=== PATIENT | female | born 2000 | race Caucasian/White ===

== ENCOUNTER 2024-08-20 16:54 | Emergency (ER) | payer OTHER ==
[~2024-08-20] VITALS: Ht 170.2 cm; Wt 125.0 kg
--- OUTSIDE RECORDS SUMMARY | 2024-08-20 17:01 | XMS ---
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 Claudette VISIT COUNT (12 MO.) 1 LINDSEY Ying GreggKelsea Serrano ) TOTAL 2 NOTE: Visits indicate total known visits. ED/UCC VISIT TRACKING (12 MO.) 08/20/2024 16:55 LINDSEY Peng [place] TYPE: Emergency COMPLAINT: - PELVIC PAIN/POSS MED REACTION 08/20/2024 05:06 [facility] ([facility]) TYPE: Emergency DIAGNOSES: - Occipital neuralgia - Allergic Reaction - reaction to med INPATIENT VISIT TRACKING (12 MO.) No inpatient visits to display in this time frame [email or web address]
[2024-08-20] MEDS ORDERED: SODIUM CHLORIDE 0.9% 1,000 ML IV PRN (17:30)
[2024-08-20] MEDS ORDERED: FLUOXETINE HCL40 MG PO (17:35)
[2024-08-20] MEDS ORDERED: ONDANSETRON ODT8 MG PO (17:35)
[2024-08-20] MEDS ORDERED: LAMOTRIGINE25 MG PO (17:35)
[2024-08-20] MEDS ORDERED: DEXTROAMP-AMPHE20 MG PO (17:35)
[2024-08-20 17:36] LABS: BILIRUBIN, URINE NEGATIVE (negative); BLOOD/HGB, URINE MODERATE (Negative); KETONE, URINE NEGATIVE (Negative); LEUK ESTERASE, URINE MODERATE (negative); NITRITE, URINE POSITIVE (negative)
[2024-08-20] MEDS ORDERED: TRAZODONE HCL50 MG PO (17:36)
[2024-08-20] MEDS ORDERED: RIZATRIPTAN10 M1 PO (17:36)
[2024-08-20 17:39] LABS: BASOPHILS 0.2 % (0-2); HEMATOCRIT 41.4 % (35.0-50.0); HEMOGLOBIN 14.4 g/dL (12.0-18.0); LYMPHOCYTES 7.5 % (24-44); MCH 30.5 (27-36); MCHC 34.7 g/dl (30-36); MCV 87.9 fl (81-99); MONOCYTES 9.1 % (0-12); NEUTROPHILS 83.2 % (39-80); PLATELET COUNT 282 K/uL (140-440); RBC 4.71 M/ul (4.3-5.7); RDW 12.9 (10.5-15.0)
[2024-08-20 17:41] LABS: EPITHELIAL CELLS, URINE SQUAMOUS 1+ /lpf (0-1+)
[2024-08-20 17:42] LABS: BACTERIA, URINE 1+ /hpf (negative); CASTS, URINE NONE SEEN \\lpf; COLLECTION TYPE, URINE CLEAN CATCH; CRYSTALS, URINE NONE SEEN (0-1+); RED BLOOD CELLS, URINE 0-1 /hpf (0-5); REFLEX CULTURE, URINE Yes (No); WHITE BLOOD CELLS, URINE 41-50 /HPF (0-5)
[2024-08-20 17:55] LABS: ALBUMIN 3.2 g/dL (3.4-5.0); ALBUMIN/GLOBULIN RATIO 0.78 (1.1-2.4); BILIRUBIN, TOTAL 0.6 mg/dL (0.2-1.0); BUN/CREATININE RATIO 6.3 (6.0-28.6); CALCIUM 8.4 mg/dL (8.5-10.1); CREATININE, SERUM 1.11 mg/dL (0.55-1.02); PROTEIN, TOTAL 7.3 g/dL (6.4-8.2)
[2024-08-20] MEDS ORDERED: KETOROLAC TROMETHAMINE 30 MG/ML VIAL IV ONE (18:00)
[2024-08-20] MEDS ORDERED: CEFTRIAXONE SODIUM 2 GM in SODIUM CHLORIDE 0.9% 100 ML IV ONE (18:45)
[2024-08-20] MEDS ORDERED: CEPHALEXIN500 M1 PO (19:00)
[2024-08-20] MEDS ORDERED: POTASSIUM CHLORIDE 10 MEQ TABCR PO ONE (19:00)
[2024-08-20 19:55] VITALS: BP 141/84
--- NOTE | 2024-08-21 07:24 | EKG ---
[facility] [address] [address] [place], [place] [address] Signed Sinus tachycardia Otherwise normal ECG No previous ECGs available Confirmed by Clif Vazquez MD ([id number]) on 08/21/2024 7:24:30 AM Electronically Signed By: CLIF VAZQUEZ MD 08/21/24 0724 PATIENT NAME: BEV SCHERER Electrocardiogram DATE OF : [birth year] PHYSICIAN: CLIF VAZQUEZ MD REPORT #: [id number] REPORT IS CONFIDENTIAL AND NOT TO BE RELEASED WITHOUT AUTHORIZATION
== END 2024-08-20 19:55 | disposition home or self-care (01) ==
LOC: ED 16:54
PROVIDERS: Emergency Medicine
DX: N39.0 Urinary tract infection, site not specified (principal)
CPT/HCPCS: 36415; 71045; 74176; 80053; 81001; 83605; 84703; 85025; 87040; 87077; 87088; 87186; 93005; 93010; 96365; 96375; 99284-25; A9270; J0696; J1885; J7030